=== PATIENT | female | born 2005 | race Caucasian/White ===

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

== ENCOUNTER 2023-10-04 20:49 | Emergency (ER) | payer BC, OTHER ==
[~2023-10-04] VITALS: Ht 167.6 cm; Wt 75.3 kg
[2023-10-04 21:33] VITALS: BP 122/81; PULSE 91; RESP 18; TEMP 98.3; O2SAT 99
== END 2023-10-04 23:00 | disposition left against medical advice (07) ==
LOC: MED 20:49
DX: K13.79 Other lesions of oral mucosa (principal); Z53.21 Procedure and treatment not carried out due to patient leaving prior to being seen by health care provider
CPT/HCPCS: 99281

== ENCOUNTER 2023-10-10 20:01 | Emergency (ER) | payer OTHER ==
[~2023-10-10] VITALS: Ht 167.6 cm; Wt 75.3 kg
[2023-10-10 20:10] VITALS: BP 105/64; PULSE 93; RESP 18; TEMP 97.6; O2SAT 100
[2023-10-10] MEDS ORDERED: AMOX1TAB8 PO (21:19)
[2023-10-10] MEDS: DEXAMETHASONE 10 MG/ML VIAL PO ONE (21:41)
[2023-10-10 21:50] VITALS: BP 105/64; PULSE 93; RESP 18; TEMP 97.6; O2SAT 100
== END 2023-10-10 21:50 | disposition home or self-care (01) ==
LOC: MED 20:01
DX: K12.1 Other forms of stomatitis (principal); R59.0 Localized enlarged lymph nodes; Z79.899 Other long term (current) drug therapy
CPT/HCPCS: 99283; J1100